=== PATIENT | male | born 1950 | race Caucasian/White ===

== ENCOUNTER 2020-06-02 11:09 | Day surgery (SDC) | payer MEDICARE ==
--- NOTE | 2020-06-02 08:21 | HP ---
DATE OF SURGERY: 06/02/2020 HISTORY OF PRESENT ILLNESS: A 70 year old with bulging right inguinal area. He had recent right shoulder surgery by Dr. Mcarthur now presents with right inguinal hernia. PAST MEDICAL HISTORY: He had a prior traumatic splenic injury in the past about two years and has been stable since. PAST SURGICAL HISTORY: Right shoulder surgery by Dr. Mcarthur recently. Cholecystectomy in the past. MEDICATIONS: None on a regular basis. ALLERGIES: NKDA. FAMILY HISTORY: Negative in regards to this problem. SOCIAL HISTORY: Denied smoking or alcohol abuse. REVIEW OF SYSTEMS: Fourteen systems reviewed per admission assessment. No chest pain or palpitations. Other systems negative or noncontributory as above and per preadmission questionnaire. PHYSICAL EXAMINATION: GENERAL: No acute distress. HEENT: Sclerae nonicteric. NECK: No JVD. CHEST: Equal excursion, nonlabored breathing. CVS: Regular rate and rhythm. ABDOMEN: Soft. He had a right inguinal hernia on exam. No peritoneal signs. EXTREMITIES: No cyanosis. He had recent shoulder surgery. NEURO: Alert, moving extremities symmetrically. No gross motor deficits noted. PSYCH: Appropriate mood and affect. IMPRESSION: Large right inguinal hernia. I feel the patient would benefit from repair. Given the extensive size and decrease the risk of recurrence with open procedure. He is at moderate risk for recurrence given the extensive size. He was explained the risks and benefits in detail including bleeding or infection, risk of swelling or firmness in the incision, risk of ingrown hair or suture reaction, risk of mesh infection possibly requiring removal, risk of black, blue and bruising, risk of hematoma or seroma formation, risk of hydrocele formation, overall risk of hernia recurrence, general risk of aches, pains, burning, numbness possibly chronic in nature lower abdomen, groin, thigh or scrotal area, up to 10 to 12% risk of chronic aches, pains, burning or numbness, possible high risk of intermittent ache or twinge, general risk of anesthesia, deep venous thrombosis, pulmonary embolism, pneumonia but not limited to. He understands all the above, will proceed with open right inguinal hernia repair with mesh as an outpatient.
[~2020-06-02 11:09] MED LIST: Lactated Ringers 1,000 ML IV ONE; Sensorcaine 0.25% 10 ML ONE
[2020-06-02] MEDS ORDERED: Lactated Ringers 1,000 ML IV SCH (11:30)
[2020-06-02] MEDS ORDERED: CEFAZOLIN 2 GM-D5W BAG** 2 GM/50 ML ML IV SCH (11:30)
[2020-06-02] MEDS ORDERED: CEFAZOLIN 2 GM-D5W BAG** 2 GM/50 ML ML IV ONE (11:46)
[2020-06-02] MEDS ORDERED: Lactated Ringers 1,000 ML IV ONE (11:47)
[2020-06-02] MEDS ORDERED: SUBLIMAZE 100 MCG/2 ML ONE ×3 (12:26→14:44)
[2020-06-02] MEDS ORDERED: Decadron 4 MG INJ ONE (12:26)
[2020-06-02] MEDS ORDERED: DIPRIVAN 200 MG/20 ML IV ONE (12:26)
[2020-06-02] MEDS ORDERED: Xylocaine-Mpf 2% 5 Ml Vial ONE (12:26)
[2020-06-02] MEDS ORDERED: Zofran 4 MG/2 ML VIAL ONE (12:26)
[2020-06-02] MEDS ORDERED: Ephedrine Sulfate 50 MG/ML ONE (13:32)
[2020-06-02] MEDS ORDERED: TORAdol 30 mg Injection ONE (14:43)
[2020-06-02 15:27] VITALS: PULSE 65; O2SAT 96
[2020-06-02 16:13] VITALS: BP 133/79
--- NOTE | 2020-06-04 08:50 | OP ---
SURGERY DATE/TIME: 06/02/2020 1240 PREOPERATIVE DIAGNOSIS: Large right inguinal hernia with bowel contents. POSTOPERATIVE DIAGNOSIS: Incarcerated right inguinal hernia with incarcerated small bowel. PROCEDURE: Open repair of incarcerated right inguinal hernia with mesh. SURGEON: Dr. Tirso Longoria. ANESTHESIA: General. ESTIMATED BLOOD LOSS: Minimal. INDICATIONS: As noted above. Risks and benefits explained in detail and not limited to and consent obtained. The site was confirmed and marked in the preoperative holding area. DESCRIPTION OF PROCEDURE AND FINDINGS: Taken to the operating room. General anesthesia induced. Abdomen and right groin prepped and draped in usual sterile fashion. After official time out and no disagreement with planned procedure, a transverse incision made. Dissection carried down through Tiffany fascia through the external oblique split in the direction of its fibers towards the external ring. He had incarcerated small bowel in this hernia that would not simply reduce, necessary to open the hernia sac. Small bowel was carefully mobilized out in the opening and then reduced back up in the abdomen to relieve incarcerated attachments. It appeared to be viable. There did not appear to be any reason for resection. There was some preperitoneal fat stuck that was carefully mobilized and reduced back up in the abdomen. This took some time but slowly and carefully accomplished. Good hemostasis noted. A large hernia sac was high ligated with 3-0 Prolene purse string. The patient did have a small hydrocele that was carefully drained of some clear fluid right above the testes area. At this point the direct hernia component was imbricated downwards with 0 PDS to a more normal size internal ring. It was felt would benefit from mesh repair. A 2x4 piece of mesh cut with keyhole cut. Mesh secured to the fascia around pubic tubercle with 0 Prolene run along Tommy's ligament along the shelving portion of the inguinal ligament laterally past where the internal ring with 0 Prolene. 0 Prolene used to transfix the rectus fascia medially. 0 Vicryl used to transfix the aponeurosis and internal oblique superiorly carefully protecting the visible iliohypogastric nerve. Tails of the mesh tacked together laterally with 0 Prolene. The internal ring was felt to be not too tight. Good hemostasis noted. The wound irrigated out. External oblique closed with 0 Vicryl. Tiffany closed with 3-0 Vicryl. Subcu closed with 3-0 Vicryl. Skin closed with 4-0 Vicryl. 0.25% Marcaine local had been injected along the skin incision back towards the origin of the inguinal area back towards the anterior iliac spine. Steri-Strips and sterile dressing applied. The patient tolerated the procedure well. There were no immediate complications.
== END 2020-06-02 16:02 | disposition home or self-care (01) ==
LOC: SDC 11:09
PROVIDERS: ATTEND Surgery
DX: K40.30 Unilateral inguinal hernia, with obstruction, without gangrene, not specified as recurrent (principal)
CPT/HCPCS: 49507; 93005; C1781; 99100; J0690; J1100; J1885; J2405; J2704; J3010